=== PATIENT | female | born 1970 | race Caucasian/White ===

== ENCOUNTER 2017-09-16 11:18 | Emergency (ER) | payer BC ==
[2017-09-16] MEDS ORDERED: LIDOCAINE 1%-EPI 1:100000 20 ML MDV SUBQ STA (11:39)
[2017-09-16] MEDS ORDERED: BUFFERED LIDOCAINE 10 ML SYRINGE SUBQ STA (11:40)
[2017-09-16] MEDS ORDERED: LIDOCAINE 1%-EPI 1:100000 30 ML MDV ONE (11:52)
[2017-09-16] MEDS ORDERED: BUFFERED LIDOCAINE 10 ML SYRINGE ONE (11:53)
--- NOTE | 2017-09-16 12:17 | XRAY Report ---
EXAM: LEFT FIRST DIGIT RADIOGRAPHY EXAM DATE: 09/16/2017 12:02 PM. CLINICAL HISTORY: Dog bite left thumb. Left thumb laceration. COMPARISON: None. TECHNIQUE: 3 views. FINDINGS: Bones: Normal. No fracture or bone lesion. Joints: Normal. No subluxations. Soft Tissues: Soft tissue swelling. No radiopaque foreign bodies. Soft tissue laceration involving th e left first digit. IMPRESSION: 1. No acute osseous abnormalities. [facility] Referring Provider Line: [phone] SITE ID: [id number]
[2017-09-16] MEDS ORDERED: cephALEXin 250 MG CAPSULE PO STA (12:54)
[2017-09-16] MEDS ORDERED: BACITRACIN OINT TOP STA (12:54)
--- NOTE | 2017-09-16 12:57 | ED Physician Documentation ---
PD HPI UPPER EXT INJURY - Stated complaint Stated Complaint: L THUMB DOG BITE - Chief complaint Chief Complaint: Laceration - History obtained from History obtained from: Patient - History of Present Illness Location: Left, Finger (thumb) Type of injury: Other (Dogbite) Where injury occurred: Home Timing - onset: How many hours ago (1) - Additonal information Additional information: The patient is a 46-year-old female who was bitten by her dog this morning when she was trying to break up a fight between 2 of her dogs. She was bitten on the left thumb. She denies any other injuries. She is right-hand dominant. Her tetanus status is up-to-date. Her dog's rabies vaccinations are up-to-date. Review of Systems Constitutional: denies: Fever Skin: reports: Laceration (s), Bite / sting Musculoskeletal: reports: Extremity pain (Left thumb.) Neurologic: denies: Focal weakness, Numbness PD PAST MEDICAL HISTORY - Past Medical History Past Medical History: No Endocrine/Autoimmune: None - Past Surgical History Past Surgical History: Yes General: Appendectomy Ortho: Other HEENT: Tonsil/Adenoidectomy - Present Medications Home Medications: Ambulatory Orders Medication Instructions Recorded Confirmed Cephalexin [Keflex] 500 mg PO TID #15 capsule 09/16/17 - Allergies Allergies/Adverse Reactions: Allergies Allergy/AdvReac Type Severity Reaction Status Date / Time Penicillins Allergy Hives Verified 09/16/17 11:24 - Social History Does the pt smoke?: No Smoking Status: Never smoker Does the pt drink ETOH?: No Does the pt have substance abuse?: No - Immunizations Immunizations are current?: Yes PD ED PE NORMAL - Vitals Vital signs reviewed: Yes - General General: Alert and oriented X 3, Well developed/nourished - HEENT HEENT: Atraumatic - Respiratory Respiratory: No respiratory distress - Derm Derm: No rash - Extremities Extremities: Other (There are multiple wounds on the left thumb, consistent with dog bite. There are 2 puncture wounds in the proximal phalanx. There is a flap type laceration at the tip of the thumb. There is an open wound at the base of the thumb on the volar aspect. There is no tenderness at the IP or MP joints. She has full flexion and extension against resistance. Distal neurovascular is intact.) - Neuro Neuro: Alert and oriented X 3, No motor deficit, No sensory deficit Results - Vitals Vitals: Vital Signs - 24 hr 09/16/17 09/16/17 11:21 13:20 Temperature 36.5 C 37.2 C Heart Rate 63 52 L Respiratory 16 19 Rate Blood Pressure 141/73 H 127/55 L O2 Saturation 100 98 Oxygen O2 Source Room air - Rads (name of study) Left thumb Radiology: Prelim report reviewed, EMP read contemporaneously, See rad report ( No acute osseous abnormality.) Procedures - Laceration (location) left thumb Length in cm: 2 Wound type: Irregular, Flap, Into subcut fat Neurovascular status: Sensory intact, Motor intact, Vascular intact Anesthesia: Lidocaine 1%, With bicarb Wound Preparation: Hibiclens, Irrigated copiously NS Skin layer closure: Nylon, Interrupted, Size #-0 - enter number (5), Sutures - enter # (8) Other: Patient tolerated well, No complications, Neurovascular intact, Dressing applied, Tetanus UTD Complexity: Simple PD MEDICAL DECISION MAKING - ED course Complexity details: reviewed results, re-evaluated patient, considered differential, d/w patient, d/w family ED course: The patient's presentation is significant for dog bite to the left thumb with puncture wounds and open lacerations. X-ray of the thumb reveals no evidence of fracture or foreign body. Treatment in the emergency department included digital block using buffered lidocaine. The wounds were irrigated copiously with normal saline. The gaping wounds were closed loosely with 5-0 nylon simple sutures. Cephalexin 500 mg administered orally (the patient is allergic to penicillin, making Augmentin a poor choice). Antibiotic ointment and nonadhesive dressing was applied. She is being discharged with a prescription for cephalexin. I discussed with her and her family the expected course of healing, specifics of wound care, as well as potentially worrisome signs or symptoms that should prompt reevaluation in the emergency department. Departure - Departure Disposition: 01 Home, Self Care Clinical Impression: Dog bite Qualifiers: Encounter type: initial encounter Qualified Code(s): W54.0XXA - Bitten by dog, initial encounter Laceration of thumb Qualifiers: Encounter type: initial encounter Damage to nail status: unspecified Foreign body presence: without foreign body Laterality: left Qualified Code(s): S61.012A - Laceration without foreign body of left thumb without damage to nail , initial encounter Condition: Stable Instructions: ED Bite Animal General Prescriptions: Cephalexin [Keflex] 500 mg PO TID #15 capsule Comments: Keep your left hand elevated as much the time as possible. Take cephalexin 3 times daily as prescribed. You can use Tylenol or ibuprofen if needed for pain or discomfort. Follow-up for suture removal in 10-12 days. Return to the emergency department sooner if you develop any sign of infection, or otherwise worsening symptoms. Discharge Date/Time: 09/16/17 13:20
[2017-09-16 13:21] VITALS: BP 127/55
== END 2017-09-16 13:20 | disposition home or self-care (01) ==
LOC: ED 11:18
DX: S61.052A Open bite of left thumb without damage to nail, initial encounter (principal); W54.0XXA Bitten by dog, initial encounter; Y93.89 Activity, other specified; Y92.009 Unspecified place in unspecified non-institutional (private) residence as the place of occurrence of the external cause
CPT/HCPCS: 12001; 73140; 99283; A9270

== ENCOUNTER 2018-06-26 08:00 | Outpatient (CLI) | payer BC ==
[2018-06-26 17:39] LABS: THYROID STIMULATING HORMONE 2.13 uIU/mL (0.34-5.60)
[2018-06-26 17:41] LABS: FREE T4 (FREE THYROXINE) 0.67 ng/dL (0.58-1.64)
[2018-06-26 20:41] LABS: BASOPHILS % (AUTO) 0.5 %; EOSINOPHILS # (AUTO) 0.1 10^3/uL (0.0-0.7); EOSINOPHILS % (AUTO) 0.9 %; HGB - HEMOGLOBIN 13.1 g/dL (12.0-16.0); LYMPHOCYTES # (AUTO) 1.6 10^3/uL (1.5-3.5); LYMPHOCYTES % (AUTO) 27.9 %; MEAN CORPUSCULAR HEMOGLOBIN 31.3 pg (27.0-31.0); MEAN CORPUSCULAR HGB CONC 33.5 g/dL (32.0-36.0); MEAN CORPUSCULAR VOLUME 93.4 fL (81.0-99.0); MEAN PLATELET VOLUME 10.4 fL (7.9-10.8); MONOCYTES # (AUTO) 0.3 10^3/uL (0.0-1.0); NEUTROPHILS # (AUTO) 3.8 10^3/uL (1.5-6.6); NEUTROPHILS % (AUTO) 64.7 %; PLT - PLATELET COUNT 162 10^3/uL (130-450); RED CELL DISTRIBUTION WIDTH 12.9 % (12.0-15.0); WHITE BLOOD COUNT 5.8 x10^3/uL (4.8-10.8)
== END 2018-06-26 23:59 | disposition home or self-care (01) ==
LOC: LAB.S 08:00
PROVIDERS: ATTEND Nurse Practitioner Family
DX: R49.0 Dysphonia (principal)
CPT/HCPCS: 36415; 84439; 84443; 85025